=== PATIENT | male | born 1970 | race African-American/Black ===

== ENCOUNTER 2018-09-10 13:25 | Emergency (ER) | payer OTHER ==
[2018-09-10 13:34] VITALS: BP 138/80; PULSE 75; TEMP 97.7; BMI 18.1
[2018-09-10] MEDS ORDERED: SODIUM CHLORIDE 1,000 ML IV STA (14:48)
--- NOTE | 2018-09-10 14:48 | PDOC ---
History of Present Illness <ChicolauraCam trevizo - Last Filed: 09/10/18 18:48> - General History Source: Patient - History of Present Illness Associated Symptoms: reports: cough, loss of appetite, weakness <NéstorAleciaSmitaAriel - Last Filed: 09/10/18 19:11> - General Chief Complaint: Respiratory Stated Complaint: RESPIRATORY ISSUE Time Seen by Provider: 09/10/18 14:16 Past History <ChicolauraCam trevizo - Last Filed: 09/10/18 18:48> - Past Medical History COPD: No - Surgical History Abdominal Surgery: Yes (GASTRIC TUMOR) - Suicide/Smoking/Psychosocial Hx Smoking History: Current every day smoker Number of Cigarettes Smoked Daily: 6 Information on smoking cessation initiated: No <Tra Palm - Last Filed: 09/10/18 19:11> - Past Medical History Allergies/Adverse Reactions: Allergies Allergy/AdvReac Type Severity Reaction Status Date / Time No Known Allergies Allergy Verified 09/10/18 13:34 Review of Systems - Review of Systems Constitutional: Yes: Weakness. No: Chills, Fever Respiratory: Yes: Cough. No: Shortness of Breath Cardiac (ROS): No: Chest Pain ABD/GI: No: Constipated, Diarrhea, Nausea, Rectal Bleeding, Vomiting, Abdominal cramping, Tarry Stools : No: Dysuria Neurological: No: Headache, Dizziness <NéstorSmitaMarthaKatelyn - Last Filed: 09/10/18 19:11> *Physical Exam - Vital Signs Last Vital Signs Temp Pulse Resp BP Pulse Ox 97.7 F 75 18 138/80 99 09/10/18 13:30 09/10/18 13:30 09/10/18 13:30 09/10/18 13:30 09/10/18 13:30 <ChicolauraCam trevizo - Last Filed: 09/10/18 18:48> - Vital Signs Last Vital Signs Temp Pulse Resp BP Pulse Ox 97.7 F 75 18 138/80 99 09/10/18 13:30 09/10/18 13:30 09/10/18 13:30 09/10/18 13:30 09/10/18 13:30 - Physical Exam General Appearance: Yes: Appropriately Dressed. No: Apparent Distress HEENT: positive: Normal Voice Neck: positive: Supple Respiratory/Chest: positive: Lungs Clear, Normal Breath Sounds. negative: Respiratory Distress Cardiovascular: positive: Regular Rate, S1, S2 Gastrointestinal/Abdominal: positive: Normal Bowel Sounds, Soft, Other (well oriana midline insicion to upper abd). negative: Tender, Distended, Guarding, Rebound Musculoskeletal: negative: CVA Tenderness Extremity: negative: Pedal Edema Integumentary: positive: Dry, Warm Neurologic: positive: Fully Oriented, Alert, Normal Mood/Affect <Tra Palm - Last Filed: 09/10/18 19:11> Moderate Sedation - Procedure Monitoring Vital Signs: Procedure Monitoring Vital Signs Temperature 97.7 F 09/10/18 13:30 Pulse Rate 75 09/10/18 13:30 Respiratory Rate 18 09/10/18 13:30 Blood Pressure 138/80 09/10/18 13:30 O2 Sat by Pulse Oximetry (%) 99 09/10/18 13:30 <Cam Oswald - Last Filed: 09/10/18 18:48> - Procedure Monitoring Vital Signs: Procedure Monitoring Vital Signs Temperature 97.7 F 09/10/18 13:30 Pulse Rate 75 09/10/18 13:30 Respiratory Rate 18 09/10/18 13:30 Blood Pressure 138/80 09/10/18 13:30 O2 Sat by Pulse Oximetry (%) 99 09/10/18 13:30 <Tra Palm - Last Filed: 09/10/18 19:11> ED Treatment Course - LABORATORY CBC & Chemistry Diagram: 09/10/18 15:52 09/10/18 14:48 - ADDITIONAL ORDERS Additional order review: Laboratory Results 09/10/18 09/10/18 09/10/18 15:52 15:34 14:48 Sodium 133 L Potassium 5.2 H Chloride 102 Carbon Dioxide 27 Anion Gap 5 L BUN 8 Creatinine 0.6 Creat Clearance w eGFR 143.80 Random Glucose 66 L Calcium 8.2 L Total Bilirubin 0.4 AST 61 H ALT 79 H Alkaline Phosphatase 64 Total Protein 6.6 Albumin 3.2 L Lipase 180 Urine Color Yellow Urine Appearance Clear Urine pH 6.0 Ur Specific [place] 1.018 Urine Protein Negative Urine Glucose (UA) 1+ H Urine Ketones Negative Urine Blood Negative Urine Nitrite Negative Urine Bilirubin Negative Urine Urobilinogen Negative Ur Leukocyte Esterase Negative 09/10/18 15:52 RBC 4.29 MCV 87.3 MCHC 35.0 RDW 13.7 MPV 7.4 L Neutrophils % 40.6 L Lymphocytes % 42.6 H Monocytes % 15.9 H Eosinophils % 0.4 Basophils % 0.5 - Medications Given in the ED: ED Medications Discontinued Medications Generic Name Dose Route Start Last Admin Trade Name Marc PRN Reason Stop Dose Admin Dextrose 25 gm 09/10/18 16:56 09/10/18 17:08 D50w (Vial) - IVPUSH 09/10/18 16:57 25 gm NOW ONE Administration Sodium Chloride 1,000 mls @ 1,000 mls/hr 09/10/18 14:48 09/10/18 15:56 Normal Saline - IV 09/10/18 15:47 1,000 mls/hr ASDIR STA Administration <Cam Oswald - Last Filed: 09/10/18 18:48> - LABORATORY CBC & Chemistry Diagram: 09/10/18 15:52 09/10/18 14:48 <Tra Palm - Last Filed: 09/10/18 19:11> Medical Decision Making - Medical Decision Making 09/10/18 14:43 48 yo M, smoker, esophageal cancer s/p surgery in 12/12 in [place], states he only received 2 chemo treatment as his insurance lapsed, has been lost to f/u since but recently had insurance reactivated in [facility] where he moved to 4 months ago, chronic pain over surgical incision and on percocet for same, now here w/ dry cough and "the sniffles" x 1 week. No sob, acute CP, f/c, palpitations, leg pain/swelling. States he continues to lose weight as "unable to eat much" and feels chronically weak. No acute change in BM, melena, BRBPR, abd pain, dysuria , n/v/f/c, CHAMBERS or dizziness. States he has since collected all his medical records from oncologist in [place] and currently in the process of finding an oncologist and a primary care physician to follow-up with in [facility]. Has since been able to see pain management in [facility] exam FTT in pt w/ stage 4 esophageal cancer No acute sxs Lost to f/u and chemo 2/2 insurance issues, now w/ reactivation of insurance Stable and in NAD w/ unremarkable exam -labs -IVF -dispo pending 09/10/18 14:57 09/10/18 19:03 Labs/CXR negative. Pt stable enough to be discharged. Given referral for oncology and primary care. Reasons to return to ER discussed with patient <Tra Palm - Last Filed: 09/10/18 19:11> *DC/Admit/Observation/Transfer <Cam Oswald - Last Filed: 09/10/18 18:48> <Tra Palm - Last Filed: 09/10/18 19:11> Diagnosis at time of Disposition: FTT (failure to thrive) in adult - Discharge Dispostion Disposition: HOME Condition at time of disposition: Good - Referrals Referrals: Heather Green MD [Primary Care Provider] - Henry Lindsey MD [Staff Physician] - Deya Brooks MD [Staff Physician] - William Alvarado MD [Staff Physician] - - Patient Instructions Additional Instructions: Your labs and chest x-ray were normal here. You were given referral today to a primary care physician and oncologist. Please call to make appointment for this week Return to ED as needed - Post Discharge Activity
[2018-09-10 16:09] LABS: BASO % 0.5 % (0-2.0); EOS % 0.4 % (0-4.5); HEMATOCRIT 37.4 % (35.4-49); HEMOGLOBIN 13.1 GM/dL (11.7-16.9); LYMPH % 42.6 % (8-40); MCH 30.6 pg (25.7-33.7); MEAN CELL VOLUME 87.3 fl (80-96); MEAN PLT VOLUME 7.4 fl (7.5-11.1); MONO % 15.9 % (3.8-10.2); NEUT % 40.6 % (42.8-82.8); PLATELET COUNT 244 K/MM3 (134-434); RBC 4.29 M/mm3 (4.00-5.60); RDW 13.7 % (11.9-15.9); WHITE BLOOD COUNT 3.1 K/mm3 (4.0-10.0)
[2018-09-10 16:40] LABS: BLOOD UREA NITROGEN 8 mg/dL (7-18); CHLORIDE 102 mmol/L (98-107); CREATININE 0.6 mg/dL (0.55-1.3); GLUCOSE,RANDOM 66 mg/dL (74-106); POTASSIUM 5.2 mmol/L (3.5-5.1); SODIUM 133 mmol/L (136-145)
[2018-09-10 16:41] LABS: ALBUMIN 3.2 g/dl (3.4-5.0); ALK PHOS 64 U/L (45-117); ANION GAP 5 MMOL/L (8-16); BILIRUBIN,TOTAL 0.4 mg/dL (0.2-1); CALCIUM 8.2 mg/dL (8.5-10.1); CO2 27 mmol/L (21-32); SGOT/AST 61 U/L (15-37); SGPT/ALT 79 U/L (13-61); TOT PROT 6.6 g/dl (6.4-8.2)
[2018-09-10 16:45] LABS: URINE APPEARANCE CLEAR; URINE BILIRUBIN NEGATIVE (<2.0 mg/dL); URINE COLOR YELLOW; URINE GLUCOSE (UA) 1+ (NEGATIVE); URINE KETONE NEGATIVE (NEGATIVE); URINE LEUK ESTERASE NEGATIVE (NEGATIVE); URINE NITRITE NEGATIVE (NEGATIVE); URINE PROTEIN NEGATIVE (NEGATIVE); URINE UROBILINOGEN NEGATIVE mg/dL (0.2-1.0)
[2018-09-10] MEDS ORDERED: DEXTROSE 50%-WATER - 25 GM/50 ML VIAL IVPUSH ONE (16:56)
[2018-09-10] MEDS ORDERED: DEXTROSE 50%-WATER 25 GM/50 ML DISP.SYRIN ONE (17:02)
== END 2018-09-10 19:12 | disposition home or self-care (01) ==
LOC: JER 13:25
PROC: 3E0337Z Introduction of Electrolytic and Water Balance Substance into Peripheral Vein, Percutaneous Approach (ICD-10-PCS; principal; 2018-09-10)
PROC: 3E0337Z Introduction of Electrolytic and Water Balance Substance into Peripheral Vein, Percutaneous Approach (ICD-10-PCS; 2018-09-10)
DX: C15.9 Malignant neoplasm of esophagus, unspecified (principal); R62.7 Adult failure to thrive; Z68.1 Body mass index [BMI] 19.9 or less, adult; F17.210 Nicotine dependence, cigarettes, uncomplicated
CPT/HCPCS: 36415; 71046-TC-FY; 80053; 81003; 83690; 85025; 96361; 96374; 99282-25; J7030

== ENCOUNTER 2020-04-11 18:57 | Inpatient (IN) | payer OTHER ==
[2020-04-11 21:01] VITALS: BMI 16.8
[2020-04-11] MEDS ORDERED: MAGNESIUM CITRATE 300 ML BOTTLE PO PRN (22:42)
[2020-04-11] MEDS ORDERED: METHOCARBAMOL 500 MG TABLET PO PRN (22:42)
[2020-04-11] MEDS ORDERED: MAGNESIUM HYDROX 2400MG/30ML ORAL SUSPENSION 30 ML CUP PO PRN (22:42)
[2020-04-11] MEDS ORDERED: ONDANSETRON *ODT* 4 MG TABLET SL PRN (22:42)
[2020-04-11] MEDS ORDERED: NICOTINE POLACRILEX 2 MG GUM BUC PRN (22:42)
[2020-04-11] MEDS ORDERED: MENTHOL/PHENOL 1 EACH UD MM PRN (22:42)
[2020-04-11] MEDS ORDERED: LORazepam 1 MG TABLET PO PRN (22:42)
[2020-04-11] MEDS ORDERED: ACETAMINOPHEN 325 MG TABLET (FP) PO PRN (22:42)
[2020-04-11] MEDS ORDERED: guaiFENesin 200 MG/10 ML 10 ML UNIT-DOSE CUPS PO PRN (22:42)
[2020-04-11] MEDS ORDERED: IBUPROFEN 400 MG TABLET (FP) PO PRN (22:42)
[2020-04-11] MEDS ORDERED: MAG HYDROX/AL HYDROX/SIMETH 30 ML UNIT-DOSE CUP PO PRN (22:42)
[2020-04-11] MEDS ORDERED: LORazepam 2 MG TABLET PO ONE (23:00)
[2020-04-11] MEDS: LORazepam 2 MG TABLET PO SCH (23:25)
[2020-04-11] MEDS: ACETAMINOPHEN 325 MG TABLET (FP) PO PRN (23:28)
[2020-04-12] MEDS: LORazepam 2 MG TABLET PO SCH ×4 (07:52→22:33)
[2020-04-12 09:06] LABS: HEMATOCRIT 36.9 % (35.4-49); HEMOGLOBIN 12.5 GM/dL (11.7-16.9); MCH 29.8 pg (25.7-33.7); MCHC 33.9 g/dl (32.0-35.9); MEAN CELL VOLUME 87.7 fl (80-96); MEAN PLT VOLUME 7.6 fl (7.5-11.1); PLATELET COUNT 272 K/MM3 (134-434); RBC 4.21 M/mm3 (4.00-5.60); RDW 13.3 % (11.9-15.9); WHITE BLOOD COUNT 3.7 K/mm3 (4.0-10.0)
[2020-04-12 09:15] LABS: CALCIUM 8.8 mg/dL (8.5-10.1)
[2020-04-12 09:16] LABS: ALBUMIN 3.4 g/dl (3.4-5.0)
[2020-04-12 09:18] LABS: BILIRUBIN,TOTAL 0.3 mg/dL (0.2-1); CREATININE 0.7 mg/dL (0.55-1.3)
[2020-04-12 09:21] LABS: TOT PROT 6.4 g/dl (6.4-8.2)
[2020-04-12] MEDS: NICOTINE 21 MG/24 HOURS TOPICAL PATCH TD SCH (11:30)
[2020-04-12] MEDS: PRENATAL VITAMINS W/ FOLIC ACID TABLET (FP) PO SCH (11:31)
[2020-04-12] MEDS: ACETAMINOPHEN 325 MG TABLET (FP) PO PRN (18:18)
[2020-04-12] MEDS: QUEtiapine FUMARATE 50 MG TABLET PO SCH (22:33)
[2020-04-12] MEDS: MELATONIN 5 MG TABLETS PO SCH (22:33)
[2020-04-12] MEDS: THIAMINE HCL 100 MG TABLET (FP) PO SCH (22:34)
[2020-04-13] MEDS: LORazepam 1 MG TABLET PO SCH ×4 (06:13→22:12)
[2020-04-13] MEDS: PRENATAL VITAMINS W/ FOLIC ACID TABLET (FP) PO SCH (10:18)
[2020-04-13] MEDS: NICOTINE 21 MG/24 HOURS TOPICAL PATCH TD SCH (10:19)
[2020-04-13] MEDS: MELATONIN 5 MG TABLETS PO SCH (22:13)
[2020-04-13] MEDS: QUEtiapine FUMARATE 50 MG TABLET PO SCH (22:13)
[2020-04-13] MEDS: THIAMINE HCL 100 MG TABLET (FP) PO SCH (22:15)
[2020-04-14] MEDS ORDERED: LORazepam 0.5 MG TABLET PO PRN
[2020-04-14] MEDS: LORazepam 0.5 MG TABLET PO SCH ×4 (07:00→22:17)
[2020-04-14] MEDS: NICOTINE 21 MG/24 HOURS TOPICAL PATCH TD SCH (10:11)
[2020-04-14] MEDS: PRENATAL VITAMINS W/ FOLIC ACID TABLET (FP) PO SCH (10:11)
[2020-04-14] MEDS: ACETAMINOPHEN 325 MG TABLET (FP) PO PRN ×2 (10:12→21:27)
[2020-04-14] MEDS: BISMUTH SUBSALICYLATE 524 MG/30 ML PO PRN ×2 (15:51→21:27)
[2020-04-14] MEDS: MELATONIN 5 MG TABLETS PO SCH (22:16)
[2020-04-14] MEDS: QUEtiapine FUMARATE 50 MG TABLET PO SCH (22:17)
[2020-04-14] MEDS: THIAMINE HCL 100 MG TABLET (FP) PO SCH (22:17)
[2020-04-15] MEDS ORDERED: LORazepam 0.5 MG TABLET PO ONE (05:00)
[2020-04-15 06:09] VITALS: TEMP 97.7
[2020-04-15 09:19] VITALS: BP 113/69; PULSE 108
== END 2020-04-15 08:54 | disposition home or self-care (01) | DRG 897 ==
LOC: YASAS 18:57 → Y3N 22:33
PROVIDERS: ADMIT Allergy & Immunology; ATTEND Allergy & Immunology
PROC: HZ2ZZZZ Detoxification Services for Substance Abuse Treatment (ICD-10-PCS; principal; 2020-04-11)
DX: F10.230 Alcohol dependence with withdrawal, uncomplicated (principal); F14.20 Cocaine dependence, uncomplicated; F19.282 Other psychoactive substance dependence with psychoactive substance-induced sleep disorder; F11.10 Opioid abuse, uncomplicated; F12.20 Cannabis dependence, uncomplicated; F17.210 Nicotine dependence, cigarettes, uncomplicated; F19.24 Other psychoactive substance dependence with psychoactive substance-induced mood disorder; F31.9 Bipolar disorder, unspecified; M25.612 Stiffness of left shoulder, not elsewhere classified; R74.01 Elevation of levels of liver transaminase levels; Z85.028 Personal history of other malignant neoplasm of stomach; Z90.3 Acquired absence of stomach [part of]; Z99.89 Dependence on other enabling machines and devices; Z56.0 Unemployment, unspecified; Z59.0 Homelessness
CPT/HCPCS: 36415; 80053; 85027; 86780; C9803; Q0162; U0003

== ENCOUNTER 2021-10-05 13:07 | Inpatient (IN) | payer OTHER ==
[2021-10-05] MEDS ORDERED: MAGNESIUM CITRATE 300 ML BOTTLE PO PRN (13:55)
[2021-10-05] MEDS ORDERED: MAG HYDROX/AL HYDROX/SIMETH 30 ML UNIT-DOSE CUP PO PRN (13:55)
[2021-10-05] MEDS ORDERED: MAGNESIUM HYDROX 2400MG/30ML ORAL SUSPENSION 30 ML CUP PO PRN (13:55)
[2021-10-05] MEDS ORDERED: LOPERAMIDE HCL 2 MG CAPSULE PO PRN (13:55)
[2021-10-05] MEDS ORDERED: ACETAMINOPHEN 325 MG TABLET (FP) PO PRN ×2 (13:55)
[2021-10-05] MEDS ORDERED: DICYCLOMINE HCL 10 MG CAPSULE PO PRN (13:55)
[2021-10-05] MEDS ORDERED: IBUPROFEN 400 MG TABLET (FP) PO PRN (13:55)
[2021-10-05] MEDS ORDERED: ONDANSETRON *ODT* 4 MG TABLET SL PRN (13:55)
[2021-10-05] MEDS ORDERED: METHOCARBAMOL 500 MG TABLET PO PRN (13:55)
[2021-10-05] MEDS ORDERED: BENZOCAINE/MENTHOL (CHLORASEPTIC ) LOZENGE MM PRN (13:55)
[2021-10-05] MEDS ORDERED: NICOTINE 10 MG CARTRIDGE (INHALER) IH PRN (13:55)
[2021-10-05] MEDS ORDERED: BISMUTH SUBSALICYLATE 524 MG/30 ML PO PRN (13:55)
[2021-10-05 15:22] VITALS: BMI 16.0
[2021-10-05] MEDS: hydrOXYzine PAMOATE 25 MG CAPSULE (FP) PO SCH ×3 (18:50→23:01)
[2021-10-05] MEDS ORDERED: MINERAL OIL ENEMA 133 ML ENEMA PR ONE (18:56)
[2021-10-05] MEDS: PRENATAL VITAMINS W/ FOLIC ACID TABLET (FP) PO SCH (20:27)
[2021-10-05] MEDS: THIAMINE HCL 100 MG TABLET (FP) PO SCH (23:00)
[2021-10-05] MEDS: MELATONIN 5 MG TABLETS PO SCH (23:00)
[2021-10-06] MEDS: hydrOXYzine PAMOATE 25 MG CAPSULE (FP) PO SCH ×5 (05:31→22:43)
[2021-10-06] MEDS: PRENATAL VITAMINS W/ FOLIC ACID TABLET (FP) PO SCH (11:21)
[2021-10-06 14:19] LABS: HEMATOCRIT 27.8 % (35.4-49); HEMOGLOBIN 8.9 GM/dL (11.7-16.9); MCH 22.7 pg (25.7-33.7); MCHC 31.9 g/dl (32.0-35.9); MEAN CELL VOLUME 71.1 fl (80-96); MEAN PLT VOLUME 7.3 fl (7.5-11.1); PLATELET COUNT 394 10^3/uL (134-434); RBC 3.91 M/mm3 (4.00-5.60); RDW 20.9 % (11.9-15.9)
[2021-10-06 14:37] LABS: ALBUMIN 3.1 g/dl (3.4-5.0)
[2021-10-06 14:38] LABS: CALCIUM 8.5 mg/dL (8.5-10.1); CREATININE 0.6 mg/dL (0.55-1.3)
[2021-10-06 14:39] LABS: BILIRUBIN,TOTAL 0.5 mg/dL (0.2-1); TOT PROT 6.2 g/dl (6.4-8.2)
[2021-10-06 14:47] LABS: BLOOD UREA NITROGEN 9.4 mg/dL (7-18)
[2021-10-06] MEDS: THIAMINE HCL 100 MG TABLET (FP) PO SCH (22:43)
[2021-10-06] MEDS: MELATONIN 5 MG TABLETS PO SCH (22:43)
[2021-10-07 06:08] LABS: SARS-CoV-2 NAA Not Detected (Not Detected)
[2021-10-07] MEDS: hydrOXYzine PAMOATE 25 MG CAPSULE (FP) PO SCH ×2 (06:18→10:37)
[2021-10-07 09:14] VITALS: BP 128/90; PULSE 109; TEMP 97.2
[2021-10-07] MEDS: PRENATAL VITAMINS W/ FOLIC ACID TABLET (FP) PO SCH (10:37)
== END 2021-10-07 12:11 | disposition other institution (70) | DRG 897 ==
LOC: YASAS 13:07 → Y6N 16:26
PROVIDERS: ADMIT Allergy & Immunology; ATTEND Allergy & Immunology
PROC: HZ2ZZZZ Detoxification Services for Substance Abuse Treatment (ICD-10-PCS; principal; 2021-10-05)
DX: F10.230 Alcohol dependence with withdrawal, uncomplicated (principal); F14.20 Cocaine dependence, uncomplicated; Z68.1 Body mass index [BMI] 19.9 or less, adult; R64 Cachexia; F12.20 Cannabis dependence, uncomplicated; F17.210 Nicotine dependence, cigarettes, uncomplicated; F31.9 Bipolar disorder, unspecified; F41.9 Anxiety disorder, unspecified; R62.7 Adult failure to thrive; Z85.028 Personal history of other malignant neoplasm of stomach; Z90.49 Acquired absence of other specified parts of digestive tract; Z59.02 Unsheltered homelessness
CPT/HCPCS: 36415; 80053; 85027; 86780; 87811; 93005; 93010; C9803-CS; U0003; U0005

== ENCOUNTER 2021-10-07 12:22 | Inpatient (IN) | payer OTHER ==
[2021-10-07] MEDS ORDERED: MAGNESIUM CITRATE 300 ML BOTTLE PO PRN (13:35)
[2021-10-07] MEDS ORDERED: BENZOCAINE/MENTHOL (CHLORASEPTIC ) LOZENGE MM PRN (13:35)
[2021-10-07] MEDS ORDERED: LOPERAMIDE HCL 2 MG CAPSULE PO PRN (13:35)
[2021-10-07] MEDS ORDERED: NICOTINE 10 MG CARTRIDGE (INHALER) IH PRN (13:35)
[2021-10-07] MEDS ORDERED: guaiFENesin 200 MG/10 ML 10 ML UNIT-DOSE CUPS PO PRN (13:35)
[2021-10-07] MEDS ORDERED: P-EPHED 60MG/TRIPROLIDI 2.5MG TABLET PO PRN (13:35)
[2021-10-07] MEDS ORDERED: MAGNESIUM HYDROX 2400MG/30ML ORAL SUSPENSION 30 ML CUP PO PRN (13:35)
[2021-10-07] MEDS ORDERED: IBUPROFEN 400 MG TABLET (FP) PO PRN (13:35)
[2021-10-07] MEDS ORDERED: MAG HYDROX/AL HYDROX/SIMETH 30 ML UNIT-DOSE CUP PO PRN (13:35)
[2021-10-07] MEDS ORDERED: ACETAMINOPHEN 325 MG TABLET (FP) PO PRN (13:35)
[2021-10-07] MEDS: hydrOXYzine PAMOATE 25 MG CAPSULE (FP) PO SCH ×3 (15:51→21:42)
[2021-10-07] MEDS: DOCUSATE SODIUM 100 MG CAPSULE (FP) PO SCH (21:42)
[2021-10-07] MEDS ORDERED: THIAMINE HCL 100 MG TABLET (FP) PO SCH (22:00)
[2021-10-07] MEDS ORDERED: MELATONIN 5 MG TABLETS PO SCH (22:00)
[2021-10-08] MEDS ORDERED: MELATONIN 5 MG TABLETS PO ONE (01:12)
[2021-10-08] MEDS: DOCUSATE SODIUM 100 MG CAPSULE (FP) PO SCH (06:39)
[2021-10-08] MEDS: hydrOXYzine PAMOATE 25 MG CAPSULE (FP) PO SCH ×2 (06:39→10:24)
[2021-10-08 07:22] VITALS: BP 110/76; PULSE 76; TEMP 97.1
[2021-10-08] MEDS ORDERED: ONDANSETRON *ODT* 4 MG TABLET SL PRN (09:42)
[2021-10-08] MEDS ORDERED: NICOTINE 7 MG/24 HOURS TOPICAL PATCH TD SCH (10:00)
[2021-10-08] MEDS ORDERED: PRENATAL VITAMINS W/ FOLIC ACID TABLET (FP) PO SCH (10:00)
[2021-10-08 12:56] LABS: HIV INTERPRETATION NEGATIVE (NEGATIVE)
[2021-10-08] MEDS ORDERED: QUEtiapine FUMARATE 50 MG TABLET PO SCH (22:00)
== END 2021-10-08 11:50 | disposition left against medical advice (07) | DRG 894 ==
LOC: YASAS 12:22 → Y5N 12:26
PROVIDERS: ADMIT Allergy & Immunology; ATTEND Allergy & Immunology
PROC: HZ2ZZZZ Detoxification Services for Substance Abuse Treatment (ICD-10-PCS; principal; 2021-10-07)
DX: F10.20 Alcohol dependence, uncomplicated (principal); F14.20 Cocaine dependence, uncomplicated; R64 Cachexia; F12.20 Cannabis dependence, uncomplicated; F17.210 Nicotine dependence, cigarettes, uncomplicated; F31.9 Bipolar disorder, unspecified; F41.9 Anxiety disorder, unspecified; Z85.028 Personal history of other malignant neoplasm of stomach; Z90.49 Acquired absence of other specified parts of digestive tract
CPT/HCPCS: 36415; 87389